=== PATIENT | female | born 1975 | race American Indian/Alaskan Native ===

== ENCOUNTER 2024-08-21 23:22 | Emergency (ER) | payer OTHER ==
[~2024-08-21] VITALS: Ht 160 cm; Wt 117.9 kg
[2024-08-22] MEDS ORDERED: Cyclobenzaprine HCl 10 MG Tab PO ONE (02:10)
[2024-08-22] MEDS ORDERED: CYCL10 PO (02:14)
[2024-08-22 02:30] VITALS: BP 160/79
== END 2024-08-22 02:38 | disposition home or self-care (01) ==
LOC: ER 23:22
DX: M62.830 Muscle spasm of back (principal); J45.909 Unspecified asthma, uncomplicated; F17.200 Nicotine dependence, unspecified, uncomplicated
CPT/HCPCS: 99283; A9270

== ENCOUNTER 2024-09-06 20:35 | Emergency (ER) | payer OTHER ==
[~2024-09-06] VITALS: Ht 160 cm; Wt 117.9 kg
[~2024-09-06 20:35] MED LIST: CYCL10 PO
[2024-09-06 20:53] VITALS: BP 156/93
[2024-09-06] MEDS ORDERED: ASPERFLEX1 EACH TOP (23:31)
== END 2024-09-06 20:53 | disposition home or self-care (01) ==
LOC: ER 20:35
DX: M54.50 Low back pain, unspecified (principal); J45.909 Unspecified asthma, uncomplicated; F17.200 Nicotine dependence, unspecified, uncomplicated; Z79.899 Other long term (current) drug therapy
CPT/HCPCS: 99283